=== PATIENT | female | born 1945 | race Caucasian/White ===

== ENCOUNTER 2017-01-20 06:13 | Day surgery (SDC) | payer BC ==
--- NOTE | ~2017-01-20 | EGD ---
EGD REPORT [facility] [address] [address] NAME: BROWN CHÁVEZ : [birth year] STATUS : [place] [facility] [place] PAT#: [id number] AGE: 71 ADM/REG DATE : 01/20/17 MR#: [id number] REPORT SERV DATE: 01/20/17 DICTATED BY: NELIA MELCHOR DATE: 01/20/17 REPORT STATUS : Draft [facility]: [facility] DATE: 01/20/17 Endoscopy Center Patient Name: Brown Chávez Date of : 1945 Attending MD: NELIA MELCHOR MD Procedure Date No Time: 01/20/2017 Procedure: Upper GI endoscopy Indications: Abdominal pain in the left upper quadrant, Gastro-esophageal reflux disease Referring MD: Zay MORALES Medicines: Propofol per Anesthesia Complications: No immediate complications. Estimated blood loss: None. Procedure: Pre-Anesthesia Assessment: - After reviewing the risks and benefits, the patient was deemed in satisfactory condition to undergo the procedure. - Prior to the procedure, a History and Physical was performed, and patient medications and allergies were reviewed. The patient's tolerance of previous anesthesia was also reviewed. The risks and benefits of the procedure and the sedation options and risks were discussed with the patient. All questions were answered, and informed consent was obtained. Prior Anticoagulants: The patient has taken Brilinta, last dose was 6 days prior to procedure. ASA Grade Assessment: III - A patient with severe systemic disease. After reviewing the risks and benefits, the patient was deemed in satisfactory condition to undergo the procedure. After obtaining informed consent, the endoscope was passed under direct vision. Throughout the procedure, the patient's blood pressure, pulse, and oxygen saturations were monitored continuously. The GIF [id number] was introduced through the mouth, and advanced to the third part of duodenum. The upper GI endoscopy was accomplished without difficulty. The patient tolerated the procedure well. Findings: Diffuse moderate erythema was found in the lower third of the esophagus. Biopsies were taken with a cold forceps for histology. Estimated blood loss: none. Diffuse moderate inflammation characterized by congestion (edema) and erythema was found in the gastric antrum. Biopsies were taken with a cold forceps for histology. Estimated blood loss: none. The pylorus was normal. EGD REPORT [address] [address] NAME: BROWN CHÁVEZ : [birth year] [place]US : [place] [facility] [place] PAT#: [id number] AGE: 71 ADM/REG DATE : 01/20/17 MR#: [id number] REPORT SERV DATE: 01/20/17 DICTATED BY: NELIA MELCHOR DATE: 01/20/17 REPORT STATUS : Draft TRANSCRIBED BY: [employer] DATE: 01/20/17 A medium amount of food (residue) was found in the gastric body. The examined duodenum was normal. Impression: - Erythema in the lower third of the esophagus. Biopsied. - Gastritis. Biopsied. - Normal pylorus. - A medium amount of food (residue) in the stomach. - Normal examined duodenum. - Non-erosive esophageal reflux (NERD) disease present. - Musculoskeletal LUQ and flank discomfort. Recommendation: - Discharge patient to home (ambulatory). - Return to previous diet. - Continue present medications including Prevacid (lansoprazole) 30 mg DAILY before meal. - Resume Brilinta today. - Await pathology results. - Do a gastric emptying study at appointment to be scheduled. - Patient has a contact number available for emergencies. The signs and symptoms of potential delayed complications were discussed with the patient. Return to normal activities tomorrow. Written discharge instructions were provided to the patient. Procedure Code(s): --- Professional --- 18096, Esophagogastroduodenoscopy, flexible, transoral; with biopsy, single or multiple Diagnosis Code(s): --- Professional --- K22.9, Disease of esophagus, unspecified K29.70, Gastritis, unspecified, without bleeding K21.9, Gastro-esophageal reflux disease without esophagitis R10.12, Left upper quadrant pain CPT copyright 2013 [employer]. All rights reserved. The codes documented in this report are preliminary and upon roller leveler operator review may be revised to meet current compliance requirements. NELIA MELCHOR MD 01/20/2017 7:49 AM This report has been signed electronically. Number of Addenda: 0 EGD REPORT [facility] [address] [address] NAME: BROWN CHÁVEZ : [birth year] STATUS : [place] [facility] [place] PAT#: [id number] AGE: 71 ADM/REG DATE : 01/20/17 MR#: [id number] REPORT SERV DATE: 01/20/17 DICTATED BY: NELIA MELCHOR DATE: 01/20/17 REPORT STATUS : Draft TRANSCRIBED BY: [employer] DATE: 01/20/17 Note Initiated On: 01/20/2017 7:19 AM Scope Withdrawal Time 0 hours 0 minutes 0 seconds [address] [id number]
[~2017-01-20 06:13] MED LIST: ASAB PO; BONIVA150 MG PO; BRILINTA90 MG PO; CALTRA600D PO; CRESTOR20 MG PO; DIOV160 PO; IMDUR30 PO; NORV5 PO; PREV30 PO; SPIRO25 PO; SPIRO50 PO; SYN125 PO; SYN88 PO; SYSTANE ULTR OPH; VITAMIN B-121000 MC1 SL; VITAMIN D31000 UNIT PO
== END 2017-01-20 23:59 | disposition home or self-care (01) ==
LOC: DMU 06:13
PROVIDERS: Internal Medicine Gastroenterology
PROC: 0DB68ZX Excision of Stomach, Via Natural or Artificial Opening Endoscopic, Diagnostic (ICD-10-PCS; 2017-01-20)
PROC: 0DB38ZX Excision of Lower Esophagus, Via Natural or Artificial Opening Endoscopic, Diagnostic (ICD-10-PCS; principal; 2017-01-20 07:30)
DX: K21.9 Gastro-esophageal reflux disease without esophagitis (principal); K29.70 Gastritis, unspecified, without bleeding; I25.10 Atherosclerotic heart disease of native coronary artery without angina pectoris; I10 Essential (primary) hypertension; E78.00 Pure hypercholesterolemia, unspecified; E03.9 Hypothyroidism, unspecified; Z95.5 Presence of coronary angioplasty implant and graft; Z88.0 Allergy status to penicillin; Z88.2 Allergy status to sulfonamides; Z88.5 Allergy status to narcotic agent; Z79.82 Long term (current) use of aspirin; Z79.899 Other long term (current) drug therapy; Z85.828 Personal history of other malignant neoplasm of skin; Z98.890 Other specified postprocedural states
CPT/HCPCS: 88305